=== PATIENT | female | born 1965 | race Caucasian/White ===

== ENCOUNTER 2024-10-26 09:58 | Outpatient (AMB) | payer OTHER, SELFPAY ==
--- OUTSIDE RECORDS SUMMARY | 2024-10-26 10:02 | XMS_ITS | Continuity of Care Document ---
Author Organization [facility] Address [address] [place] [address] [address] [place] [address]- Care Team Providers Care Information Systems Security Officer Name Role Phone Guille POWELL, Orly Gomez Primary Care Physician Encounter [facility] Date(s): 09/29/24 - 10/06/[address] [place], [place] [address] Attending Physician: Scott Payan MD Referring Physician: Not on Staff, Referring MD Encounter Type: Office Visit Allergies, Adverse Reactions, Alerts Substance Criticality Severity Reaction Reaction Severity Status ciprofloxacin emesis Active sulfa drugs nausea Active Bentyl SOB Active Immunizations Given and Recorded Vaccine Date Status Refusal Reason influenza virus vaccine, inactivated 09/09/24 Give n influenza virus vaccine, inactivated 09/05/22 Domenic rded influenza virus vaccine, inactivated 08/23/22 Domenic rded influenza virus vaccine, inactivated 08/22/21 Domenic rded influenza virus vaccine, inactivated 08/12/20 Domenic rded influenza virus vaccine, inactivated 10/07/18 Domenic rded influenza virus vaccine, inactivated 09/19/18 Give n influenza virus vaccine, inactivated 08/27/17 Domenic rded influenza virus vaccine, inactivated 10/14/16 Domenic rded [id number] 12y+ bivalent booster vax 09/05/22 Recorded SARS-CoV-2 mRNA (tbzzvvm-efon-nlpec) vax 03/28/22 Recorded zoster vaccine, inactivated 01/18/22 Recorded zoster vaccine, inactivated 09/04/21 Recorded SARS-CoV-2 (COVID-19) mRNA BNT-162b2 vac 10/10/21 Recorded SARS-CoV-2 (COVID-19) mRNA BNT-162b2 vac 02/08/21 Recorded SARS-CoV-2 (COVID-19) mRNA BNT-162b2 vac 01/18/21 Recorded Measles/Mumps/Rubella Virus Vaccine 04/01/19 Recor ded pneumococcal 23-valent vaccine 03/13/17 Given Afluria (oldterm) 10/16/16 Recorded pneumococcal 13-valent vaccine 08/09/15 Given Fluvirin Preservative-Free (oldterm) 08/09/15 Give n Adacel (Tdap) (oldterm) 07/14/15 Recorded Medications Acidophilus oral tablet TAKE 1 CAPSULE DAILY, 04/19/13 3:32:00 PM EDT Start Date: 04/19/13 Status: Ordered Repeat number: 1 Calcium and albumin blood draws Calcium and albumin blood draws, See Instructions, # 1 each, Refills 0, Tot. Refills 0, Maintenance, Calcium and albumin blood draws, 09/14/24 9:08:00 AM EST, Supply Start Date: 09/14/24 Status: Ordered Quantity: 1.0 Unit: each Repeat number: 1 calcium-vitamin D 600 mg-400 intl units oral tablet 1 tablet, By Mouth, 2 times a day, # 60 tablet, 0 Refills, Maintenance, 01/02/18 11:16:24 AM EST, Tablet Start Date: 01/02/18 Status: Ordered Quantity: 60.0 Unit: tablet Repeat number: 1 Colace sodium 100 mg oral capsule 100 mg, 1, capsule, By Mouth, 2 times a day, PRN, with plenty of water, # 20 capsule, Refills 1, Tot. Refills 1, Maintenance, for constipation, 09/07/24 9:26:00 AM EDT, Route to Pharmacy Electronically, [facility]/pharmacy #[id number], Partial fill upon patient request if the prescription is for a schedule II opioid drug., 163, cm, 09/07/24 7:10:00 EDT, Height, 65.7, kg, 09/07/24 7:10:00 EDT, Dry Weight Start Date: 09/07/24 Status: Ordered Quantity: 20.0 Unit: capsule Repeat number: 2 diclofenac 1% topical gel 1 application, Topically, 4 times a day, 1 gram per application, # 100 Gm, 1 Refills, Maintenance, 10/07/18 5:33:29 PM EST, Gel, [facility]/pharmacy #[id number], 1 application Topically 4 times a day,Instr:1 gramper application Start Date: 10/07/18 Status: Ordered Quantity: 100.0 Unit: g Repeat number: 2 Flax Seed Oil TAKE 2 CAPSULE DAILY, 04/19/13 12:00:00 AM EDT Start Date: 04/19/13 Status: Ordered Repeat number: 1 Fosamax 70 mg oral tablet 1 tablet = 70 mg, By Mouth, Every week, # 4 tablet, 0 Refills, Maintenance, 03/11/23 10:53:00 AM EDT,Tablet, Partial fill upon patient request if the prescription is for a schedule II opioid drug. Start Date: 03/11/23 Status: Ordered Quantity: 4.0 Unit: tablet Repeat number: 1 gabapentin 400 mg oral capsule 1 capsule = 400 mg, By Mouth, 2 times a day, TAKE 1 CAPSULE 3 TIMES DAILY., 04/19/13 3:32:00 PM EDT Start Date: 04/19/13 Status: Ordered Repeat number: 1 Ibuprofen 200 mg, By Mouth, Daily, Refills 0, Maintenance, 02/09/19 10:44:57 AM EDT Start Date: 02/09/19 Status: Ordered Repeat number: 1 lisinopril 5 mg oral tablet 1, tablet, By Mouth, Daily, # 90 tablet, Refills 0, Maintenance, 06/14/24 9:47:00 AM EDT, Route to Pharmacy Electronically, [id number], 162, cm, 03/19/24 10:26:00 EDT, Height Start Date: 06/14/24 Status: Ordered Quantity: 90.0 Unit: tablet Repeat number: 1 magnesium oxide 400 mg oral tablet TAKE 1 TABLET TWICE DAILY., 04/19/13 3:32:00 PM EDT Start Date: 04/19/13 Status: Ordered Repeat number: 1 Multi-Delyn with Iron 0 Refills, Maintenance, 03/19/24 10:26:00 AM EDT, Partial fill upon patient request if the prescription is for a schedule II opioid drug. Start Date: 03/19/24 Status: Ordered Repeat number: 1 nortriptyline 25 mg oral capsule TAKE 1 CAPSULE AT BEDTIME., 10/29/13 12:00:00 AM EDT Start Date: 09/07/13 Status: Ordered Repeat number: 1 pantoprazole 40 mg oral delayed release tablet 1 tablet = 40 mg, By Mouth, Daily, # 30 tablet, 0 Refills, Maintenance, 03/27/18 2:08:11 AM EDT, EC Tablet Start Date: 03/27/18 Status: Ordered Quantity: 30.0 Unit: tablet Repeat number: 1 Restasis 0.05% ophthalmic emulsion 1 drops, Eyes, Both, Every 12 hours, 0 Refills, Maintenance, 10/14/16 12:38:08 PM EST Start Date: 10/14/16 Status: Ordered Repeat number: 1 Tylenol Arthritis Caplet TAKE 2 TABLET 3 TIMES DAILY, 04/19/13 12:00:00 AM EDT Start Date: 04/19/13 Status: Ordered Repeat number: 1 Problem List Condition Confirmation Course Effective Dates Status Health St atus Informant Cervical spondylosis Confirmed Active Osteoarthritis, hand Confirmed Active GERD (gastroesophageal reflux disease) Confirmed Active Rectal/anal hemorrhage Confirmed Active Hypertension Confirmed Active Osteopenia Confirmed Active Osteoporosis Confirmed Active Overweight Confirmed Active Plantar fascial fibromatosis Confirmed Active Hyperparathyroidism , primary Confirmed Active Vital Signs Most recent to oldest [Reference Range]: 1 Height 163 cm (09/29/24 2:43 PM) Weight 65.4 kg (09/29/24 2:43 PM) Pulse Rate [55-90 bpm] 70 bpm (09/29/24 2:43 PM) Body Mass Index [18.5-24.99 kg/m2] 24.62 kg/m2 (09/29/24 2:43 PM) Blood Pressure [90-138/55-84 mm Hg] 118/ 71mm Hg (09/29/24 2:43 PM) Temperature [96.8-100.4 DegF] 98.9 DegF (09/29/24 2:43 PM) Blood pressure sites Arm, left (09/29/24 2:43 PM) Temperature Route Temporal (09/29/24 2:43 PM) Weight Obtained Via Standing scale (09/29/24 2:43 PM) Social History Social History Type Response Smoking Status Never smoker entered on: 04/16/18 Sex Sex Representation Female (finding) Patient Care team information Care Team Personnel Name: Andrea CHAHAL, Nimesh Bruno Position: S RN Member Role: Primary Care Nurse Name: Orly Han NP Position: [facility] PCO Associate Professional Member Role: PCP Address: [address] [place] [address] Telecom: Care Team Related Persons Name: PHILLIP PEDRO Insurance Providers Guarantor name: SELMA PEDRO Health Plan Information #: 1 [facility] Member Number: [id number] Policy Number: NA Group Number: [id number] Health Plan Information #: 2 Payer: [facility] Member Number: [id number] Policy Number: NA Group Number: NA
--- OUTSIDE RECORDS SUMMARY | 2024-10-26 10:02 | XMS_ITS | Continuity of Care Document ---
Author Organization [facility] Address [address] [place] [address] [address] [place] [address]- Care Team Providers Care Esthetician/Spa Coordinator Name Role Phone Orly Han NP Primary Care Physician Encounter [facility] Date(s): 09/14/24 - 10/14/[address] [place], [place] [address] Encounter Type: Triage Allergies, Adverse Reactions, Alerts Substance Criticality Severity [...] influenza virus vaccine, inactivated 10/14/16 Domenic rded [id number] 12y+ bivalent booster vax 09/05/22 Recorded SARS-CoV-2 mRNA (pukmjie-aitg-mbfsb) vax 03/28/22 Recorded zoster vaccine, inactivated 01/18/22 [...] 9:26:00 AM EDT, Route to Pharmacy Electronically, [facility]/pharmacy #[id number], Partial fill upon patient request if the [...] Refills, Maintenance, 10/07/18 5:33:29 PM EST, Gel, [facility]/pharmacy #[id number], 1 application Topically 4 times a day,Instr:1 [...] By Mouth, Daily, # 90 tablet, Refills 1, Tot. Refills 1, Maintenance, 10/08/24 1:18:00 PM EST, Route to Pharmacy Electronically, [facility]/pharmacy #[id number], 163, cm, 09/29/24 14:43:00 EST, Height,65.7, kg, 09/07/24 7:10:00 EDT, Dry Weight Start Date: 10/08/24 Status: Ordered Quantity: 90.0 Unit: tablet Repeat number: 2 magnesium oxide 400 mg oral tablet TAKE [...] oral capsule TAKE 1 CAPSULE AT BEDTIME., 09/07/13 12:00:00 AM EDT Start Date: 09/07/13 Status: [...] Confirmed Active Hyperparathyroidism , primary Confirmed Active Social History Social History Type Response Smoking Status Never smoker entered on: 04/16/18 Sex Sex Representation Female (finding) Patient Care team information Care Team Personnel Name: Andrea CHAHAL, Nimesh Bruno Position: [facility] RN Member Role: Primary Care Nurse Name: Orly Han NP Position: [facility] PCO Associate Professional Member Role: PCP Address: [address] [place] [address] Telecom: Care Team Related Persons Name: PHILLIP PEDRO Insurance Providers Guarantor name: SELMA PEDRO Health Plan Information #: 1 Payer: [facility] Member Number: NA Policy Number: NA Group Number: NA
--- OUTSIDE RECORDS SUMMARY | 2024-10-26 10:02 | XMS_ITS | Continuity of Care Document ---
Author Organization [facility] Primary [facility] [place] Address [address] [place] [address]- Care Team Providers Care Professor Of Communication And Writing Name Role Phone Orly Han NP Primary Care Physician Encounter [facility] Date(s): 09/02/24 - 10/02/24 [facility] [address] [place], [place] [address] Encounter Type: Triage Allergies, Adverse Reactions, Alerts [...] influenza virus vaccine, inactivated 10/14/16 Domenic rded [id number] 12y+ bivalent booster vax 09/05/22 Recorded SARS-CoV-2 mRNA (zlqplfx-kxmx-nitvv) vax 03/28/22 Recorded zoster vaccine, inactivated 01/18/22 Recorded zoster vaccine, inactivated 09/04/21 Recorded SARS-CoV-2 (COVID-19) mRNA BNT-162b2 vac 10/10/21 Recorded SARS-CoV-2 (COVID-19) mRNA BNT-162b2 vac 4/1/21 Recorded SARS-CoV-2 (COVID-19) mRNA BNT-162b2 vac 01/18/21 [...] 9:26:00 AM EDT, Route to Pharmacy Electronically, [facility]/pharmacy #[id number], Partial fill upon patient request if the [...] Refills, Maintenance, 10/07/18 5:33:29 PM EST, Gel, [facility]/pharmacy #[id number], 1 application Topically 4 times a day,Instr:1 [...] 9:47:00 AM EDT, Route to Pharmacy Electronically, [facility] STORE [id number], 162, cm, 03/19/24 10:26:00 EDT, Height Start [...] Personnel Name: Andrea CHAHAL, Nimesh Bruno Position: [facility] RN Member Role: Primary Care Nurse Name: Orly Han NP Position: [facility] PCO Associate Professional Member Role: PCP Address: [address] [place] [address] Telecom: Care Team Related Persons Name: PHILLIP PEDRO Insurance Providers Guarantor name: [facility] Plan Information #: 1 Payer: [facility] Member Number: NA Policy Number: NA Group Number: NA
--- OUTSIDE RECORDS SUMMARY | 2024-10-26 10:02 | XMS_ITS | Continuity of Care Document ---
Author Organization [facility] [place] [facility] Address [address] [place] [address] [address], [address] [place] [address]- Care Team Providers Care Chair Car Driver Name Role Phone Orly Han NP Primary Care Physician Encounter [facility] Date(s): 09/15/24 - 10/15/24 [facility] [address] [place] [address] Drive [address] [place], [place] [address] Encounter Type: Triage Allergies, Adverse Reactions, [...] influenza virus vaccine, inactivated 10/14/16 Domenic rded [id number] 12y+ bivalent booster vax 09/05/22 Recorded SARS-CoV-2 mRNA (qkvmvdy-ndep-xychn) vax 03/28/22 Recorded zoster vaccine, inactivated 01/18/22 [...] 9:26:00 AM EDT, Route to Pharmacy Electronically, [facility]/pharmacy #[id number], Partial fill upon patient request if the [...] Refills, Maintenance, 10/07/18 5:33:29 PM EST, Gel, [facility]/pharmacy #[id number], 1 application Topically 4 times a [...] 1:18:00 PM EST, Route to Pharmacy Electronically, [facility]/pharmacy #[id number], 163, cm, 09/29/24 14:43:00 EST, Height,65.7, [...] Personnel Name: Andrea CHAHAL, Nimesh Bruno Position: [facility] RN Member Role: Primary Care Nurse Name: Orly Han NP Position: [facility] PCO Associate Professional Member Role: PCP Address: [address] [place] [address] Telecom: Care Team Related Persons Name: PHILLIP PEDRO Insurance Providers Guarantor name: SELMA MENDOZAELINSKI Health Plan Information #: 1 Payer: [facility] Member Number: NA Policy Number: NA Group Number: NA
[2024-10-26 10:18] VITALS: BP 120/70; PULSE 82; O2SAT 95; BMI 24.2
--- NOTE | 2024-10-26 10:18 | A.OFFVIS_ITS ---
Vital Signs 10/26/24 10:18 Height 5 ft 4 in Weight 140 lb 14.006 oz BMI 24.2 BP 120/70 Blood Pressure Location Lt brachial Position Sitting Pulse 82 Pulse Source Pulse Oximeter Pulse Oximetry (%) 95 Oxygen Delivery Method Room Air Intake Visit Reasons: RA Intake Note: Patient presents for follow up on RA. Patient needs refill of Fosamx today. Allergies amoxicillin [From Augmentin] Allergy (Mild, Verified 10/26/24 10:26) Nausea clavulanic acid [From Augmentin] Allergy (Mild, Verified 10/26/24 10:26) Nausea dicyclomine [From Bentyl] Allergy (Mild, Verified 10/26/24 10:26) Anaphylaxis Sulfa (Sulfonamide Antibiotics) Allergy (Mild, Verified 10/26/24 10:26) Nausea HPI HPI RA: Details: Parathryoid removed 2 months ago. Healing well. She has a 4 month follow-up scheduled with surgeon. She continues to take calcium supplement. She reports that last calcium level was normal on supplementation. She also is on a multivitamin. Alendronate rx sent to pharmacy. Review of Systems Const All systems reviewed & are unremarkable except as noted in HPI and below Physical Exam Vital Signs: Last Vital Signs Pulse 82 10/26/24 10:18 BP 120/70 10/26/24 10:18 Pulse Ox 95 10/26/24 10:18 Oxygen Delivery Method Room Air 10/26/24 10:18 BMI result Body Mass Index 24.2 Const Other: General: Comfortable Skin: No lesions seen MSK: Good cervical range of motion. Good lumbar flexion. Skin: Scar anterior neck is healing well without any sign of infection Assessment & Plan Assessment & Plan (1) Osteoporosis: Comment: On alendronate. She recently had parathyroidectomy for treatment of hyperparathyroidism without any complications. We reviewed recent labs 10/18/2024, which reveal normal calcium, creatinine, vitamin-D level with bone turnover markers at in a good range while patient is on treatment. Answered patient's questions to her satisfaction. Code(s): M81.0 - Age-related osteoporosis without current pathological fracture Category: Medical Qualifiers: Osteoporosis type: age-related Presence of current pathological fracture: without current pathological fracture Qualified Code(s): M81.0 - Age- related osteoporosis without current pathological fracture Plan: Bone density is due after 11/12/2024. Continue calcium carbonate 500 mg daily Continue multivitamin daily Continue alendronate 70 mg once weekly She will continue to follow-up with endocrinology for hyperparathyroidism management status post parathyroidectomy Return to clinic in 2 months to review bone density Orders: Orders XR DEXA axial skeleton 1 Month M81.0 - Age-related osteoporosis without current pathological fracture Coding Level of Care Code Est Pt Level 4 (54479) Complex EM visit Add On G2211 Diagnoses Age-related osteoporosis without current pathological fracture M81.0 Osteoporosis type: age-related Presence of current pathological fracture: without current pathological fracture
== END 2024-10-26 11:44 | disposition home or self-care (01) ==
PROVIDERS: PCP Internal Medicine; Visit Provider Internal Medicine Rheumatology
DX: M81.0 Age-related osteoporosis without current pathological fracture (principal)
CPT/HCPCS: 99214

== ENCOUNTER 2024-12-09 09:58 | Outpatient (REF) | payer OTHER, SELFPAY ==
--- NOTE | ~2024-12-09 | MM_ITS ---
EXAMINATION: DXA BONE DENSITY EXTREMITY HISTORY: Estrogen deficiency TECHNIQUE: Resale Therapy Dual energy absorptiometry (DEXA) of the lumbar spine, total left hip, and femoral neck was performed. COMPARISON: There are no prior studies for comparison. FINDINGS: The bone mineral density of the lumbar spine is 0.851 with a T-score of -2.7, and a Z-score of -1.3. The bone mineral density of the left total hip is 0.751 with a T-score of -2.0, and a Z-score of -0.9. The bone mineral density of the left femoral neck is 0.669 with a T-score of -2.7, and a Z-score of -1.3. The bone mineral density of the distal radius is 0.622 with a T-score of -2.9, and a Z-score of -1.8. MM/XR DEXA appendicular skeleton IMPRESSION: Based on bone mineral density, and according to World Health Organization (WHO) criteria, the diagnosis is consistent with osteoporosis. All bone density values are in grams per centimeter squared (g/cm2). Statistically, 68% of repeat scans fall within 1 SD (+/- 0.010 g/cm2 for AP spine L1-L4) and 1 SD (+/- 0.012 g/cm2 for femur total) FRAX is a trademark of the [employer]'s [employer] Disease, a World Health Organization (WHO) Collaborating Center. Electronically signed by: Alberto Soni MD 12/13/2024 12:38 PM [facility]
--- OUTSIDE RECORDS SUMMARY | 2024-12-09 13:06 | XMS_ITS | Encounter Summary ---
Author Organization [facility] Address [address] [place] [address] Care Team Providers Care Comptometrist Name Role Phone Orly Han NP Primary Care Provider [phone] Encounter Details Date Type Department Care Team (Latest Contact Info) Description 12/06/[address] [facility] [address] [facility] [place] [phone] Trent Restrepo MD [address] [facility] [address] [place] [phone] Encounter for screening for infections with a predominantly sexual mode of transmission Social History Tobacco Use Types Packs/Day Years Used Date Smoking Tobacco: Never Smokeless Tobacco: Never Alcohol Use Standard Drinks/Week Comments Yes 0 (1 standard drink = 0.6 oz pur e alcohol) Housing Instability Answer Date Recorde d Are you worried that in the next 2 months you may not have stable housing? No 11/04/2024 Food Access & Nutrition Answer Date Rec orded Do you have access to a vari ety of food including fruits and vegetables? Yes 11/04/2024 Health Literacy Answer Date Recorded How often do you need to hav e someone help you when you read instructions, pamphlets, or other written material from your doctor or pharmacy? Never 11/04/2024 Caregiver: How often do you need to have someone help you when you read instructions, pamphlets, or other written material from your doctor or pharmacy? Not on file 11/04/2024 Financial Risk Answer Date Recorded How hard is it for you to pa y for the very basics like food, housing, medical care, and air conditioning / heating? Not very hard 11/04/2024 Transportation Answer Date Recorded Has the lack of transportati on kept you from meetings, work, or from getting things needed for daily living? No Has the lack of transportati on kept you from medical appointments or from getting medications? No 11/04/2024 Social Isolation Answer Date Recorded How often do you feel lonely or isolated from th ose around you? Never 11/04/2024 Food Risk Answer Date Recorded Within the past 12 months we worried whether our food would run out before we got money to buy more. Never true 11/04/2024 Within the past 12 months th e food we bought just didn't last and we didn't have money to get more. Never true 11/04/2024 Dependent Care Answer Date Recorded Do you need help finding or paying for care for your loved ones. For example, early childhood director or elderly care for an older adult? No 11/04/2024 Education Answer Date Recorded Do you think completing more education or training, like finishing a GED, going to college, or learning a trade, would be helpful for you? No 11/04/2024 Employment and Income Answer Date Recor ded During the last four weeks, have you been actively looking for work? No 11/04/2024 Living Situation Answer Date Recorded What is your living situation? 1 01/05/2024 Sex and Gender Information Value Date Recorded Sex Assigned at Not on file Gender Identity Not on file Sexual Orientation Not on file Job Start Date Occupation Industry Not on file Not on file Not on file documented as of this encounter Plan of Treatment Upcoming Encounters Date Type Department Care Team (Late st Contact Info) Description 04/14/2025 11:00 AM EDT Office Visit [facility] [address] [facility] [address] [place] [phone] Dariusz Mike MD [address] [facility] [address] [place] [address] documented as of this encounter Procedures Procedure Name Priority Date/Time Associated Diagnosis Comments CHLAMYDIA TRACHOMATIS AND NEISSERIA GONORRHOEAE PCR Routine 12/06/2024 12:00 AM EST Encounter for screening for infections with a predominantly sexual mode of transmission documented in this encounter Results * Chlamydia trachomatis and Neisseria gonorrhoeae molecular study (12/06/2024 12:00 AM EST) Neisseria gonorrhoeae PCR Negative Negative LAB MOLECULAR DIAGNOSTICS METHOD 12/07/2024 8:50 AM EST [facility] Chlamydia trachomatis PCR Negative Negative LAB MOLECULAR DIAGNOSTICS METHOD 12/07/2024 8:50 AM EST [facility] Swab Cervix uteri structure / Unknown 12/06/2024 12/06/2024 6:24 PM EST Trent Restrepo MD LAB MICROBIOLOGY - G ENERAL ORDERABLES [facility] [address] [place] [address], documented in this encounter Visit Diagnoses Diagnosis Encounter for screening for infections with a predominantly sexual mode of transmission documented in this encounter Care Teams Comptometrist Relationship Specialty Start Date End Date Orly Han NP [address] [place] [address] PCP - General 02/26/22 documented as of this encounter
--- OUTSIDE RECORDS SUMMARY | 2024-12-09 13:06 | XMS_ITS | Continuity of Care Document ---
Author Organization [facility] Address [address] [place] [id number] Care Team Providers Care Event Marketing Manager Name Role Phone Orly Han NP [phone] Date[facility]s): 11/11/24 - 11/18/24 [facility] [address] [place] [id number] Encounter Diagnosis Osteoporosis(Discharge Diagnosis) - 11/11/24 GERD (gastroesophageal reflux disease)(Discharge Diagnosis) - 11/11/24 Attending Physician: Gina Coburn MD Referring Physician: Orly Hna NP Encounter Type: Office Visit Allergies, Adverse Reactions, Alerts Substance Criticality Severity Reaction Reaction Severity Status ciprofloxacin emesis Active Bentyl SOB Active sulfa drugs nausea Active Immunizations Given and Recorded Vaccine Date [...] influenza virus vaccine, inactivated 10/14/16 Domenic rded [id number] 12y+ bivalent booster vax 09/05/22 Recorded SARS-CoV-2 mRNA ([id number]) vax 03/28/22 Recorded zoster vaccine, inactivated 01/18/22 [...] 9:26:00 AM EDT, Route to Pharmacy Electronically, [facility]/pharmacy #[id number], Partial fill upon patient request if the [...] Refills, Maintenance, 10/07/18 5:33:29 PM EST, Gel, [facility]/pharmacy #[id number], 1 application Topically 4 times a [...] 1:18:00 PM EST, Route to Pharmacy Electronically, [facility]/pharmacy #[id number], 163, cm, 09/29/24 14:43:00 EST, Height,65.7, [...] 10/14/16 Status: Ordered Repeat number: 1 Tylenol 8 HR Arthritis Pain 650 mg oral tablet, extended release By Mouth, 2 tablets twice a day, 0 Refills, Maintenance, 11/11/24 10:31:00 AM EST, Partial fill upon patient request if the prescription is for a schedule II opioid drug. Start Date: 11/11/24 Status: Ordered Repeat number: 1 Tylenol Arthritis [...] Confirmed Active Hyperparathyroidism , primary Confirmed Active Diagnosis Diagnosis Type Effective Dates Health Status Clinical Service Informant Osteoporosis Discharge Diagnosis 11/11/24 GERD (gastroesophageal reflux disease) Discharge Diagnosis 11/11/24 Vital Signs Most recent to oldest [Reference Range]: 1 Height 163 cm (11/11/24 10:33 AM) Weight 62.9 kg (11/11/24 10:33 AM) Pulse Rate [55-90 bpm] 87 bpm (11/11/24 10:33 AM) Body Mass Index [18.5-24.99 kg/m2] 23.67 kg/m2 (11/11/24 10:33 AM) Blood Pressure [90-138/55-84 mm Hg] 106/ 66mm Hg (11/11/24 10:33 AM) Blood pressure sites Arm, left (11/11/24 10:33 AM) Weight Obtained Via Bed scale (11/11/24 10:33 AM) Social History Social History Type Response Smoking Status Never smoker entered on: 04/16/18 Sex Sex Representation Female (finding) Note * Maya Ortega: PERFORM Event Display: Patient Education/Instruction Authored Date: Ambulatory Adult Visit Summary [facility] [address] [place] [address] Name: SELMA PEDRO : 1965?? Visit: 11/11/2024 10:23?? Ambulatory Visit Instructions ?? Your Care Team Primary Care Provider Guille POWELL, Orly Gomez? This Visit Provider Almas CAMPUZANO, Gina Vitals Signs Pulse Rate: 87 bpm Height: 163 cm Systolic Blood Pressure: 106 mm Hg Weight: 62.9 kg Diastolic Blood Pressure: 66 mm Hg Body Mass Index: 23.67 kg/m2 ?? Body surface area: 1.69 What to do next Future Orders Phosphorus Level - Routine, Once, 02/10/24 8:48:00 EDT, Single or Recurring Future Order, [facility], Blood?? Calcium Level - Routine, Once, 02/10/24 8:48:00 EDT, Single or Recurring Future Order, [facility], Blood?? Albumin Level - Routine, Once, 02/10/24 8:48:00 EDT, Single or Recurring Future Order, [facility], Blood?? CBC w/ Differential - Routine, Once, 09/09/24 11:26:00 EDT, Future Order, [facility], Blood?? Comprehensive Metabolic Panel - Routine, Once, 09/09/24 11:26:00 EDT, Future Order, [facility], Blood?? TSH - Routine, Once, 09/09/24 11:26:00 EDT, Future Order, [facility], Blood?? Lipid Panel - Routine, Once, 09/09/24 11:26:00 EDT, Future Order, [facility], Blood?? Vitamin D 25 Hydroxy Level - Routine, Once, 09/09/24 11:26:00 EDT, Future Order, [facility], Blood?? Medications The list below reflects the information in our records and provided by you today along with any changes made during this visit. Please continue your medications until treatment is completed or stopped by your provider. If this is different from the information you have or there are other questions,please contact the prescribing provider. What How Much When Instructions Unchanged Acetaminophen (Tylenol 8 HR Arthritis Pain 650 mg oral tablet, extended release) Oral 2 tablets twice a day ?? Unchanged Acetaminophen (Tylenol Arthritis Caplet) TAKE 2 TABLET 3 TIMES DAILY ?? Unchanged Alendronate (Fosamax 70 mg oral tablet) 1 tab(s) Oral Every week Unchanged Calcium And Vitamin D Combination (calcium-vitamin D 600 mg-400 intl units oral tablet) 1 tab(s) Oral Twice a day Unchanged Cyclosporine Ophthalmic (Restasis 0.05% ophthalmic emulsion) 1 Drops Both eyes Every 12 hours Unchanged Diclofenac Topical (diclofenac 1% topical gel) 1 jenise Topically 4 times a day 1 gram per application ?? Unchanged Docusate (Colace sodium 100 mg oral capsule) 1 capsule Oral Twice a day as needed for for constipation with plenty of water ?? Unchanged Flax (Flax Seed Oil) TAKE 2 CAPSULE DAILY ?? Unchanged Gabapentin (gabapentin 400 mg oral capsule) 1 capsule Oral Twice a day TAKE 1 CAPSULE 3 TIMES DAILY. ?? Unchanged Ibuprofen 200 Milligram Oral Daily Unchanged Lactobacillus Acidophilus (Acidophilus oral tablet) TAKE 1 CAPSULE DAILY ?? Unchanged Lisinopril (lisinopril 5 mg oral tablet) 1 tab(s) Oral Daily Unchanged Magnesium Oxide (magnesium oxide 400 mg oral tablet) TAKE 1 TABLET TWICE DAILY. ?? Unchanged Miscellaneous Rx (Calcium and albumin blood draws) See instructions Calcium and albumin blood draws ?? Unchanged Multivitamin With Iron (Multi-Delyn with Iron) Unchanged Nortriptyline (nortriptyline 25 mg oral capsule) TAKE 1 CAPSULE AT BEDTIME. ?? Unchanged Pantoprazole (pantoprazole 40 mg oral delayed release tablet) 1 tab(s) Oral Daily Medications and Immunizations Administered Medications Given During Visit No medications given during this visit.?? Allergies (NKA means No Known Allergies) Bentyl??(SOB) ciprofloxacin??(emesis) sulfa drugs??(nausea) Common Emergency Awareness Tips IS IT A STROKE? Act FAST and Check for these signs: FACE Does the face look uneven? ARM Does one arm drift down? SPEECH Does their speech sound strange? TIME Call at any sign of stroke ?? Heart Attack Signs Chest discomfort: Most heart attacks involve discomfort in the center of the chest and lasts more than a few minutes, or goes away and comes back. It can feel like uncomfortable pressure, squeezing, fullness or pain. Discomfort in upper body: Symptoms can include pain or discomfort in one or both arms, back, neck, jaw or stomach. Shortness of breath: With or without discomfort. Other signs: Breaking out in a cold sweat, nausea, or lightheaded. Remember, MINUTES DO MATTER. If you experience any of these heart attack warning signs, call to get immediate medical attention! ?? Smoking can increase your chances of developing chronic health problems and can cause harmful effects to other family members in your house. If you smoke, you are strongly encouraged to quit. Please call [facility] at [phone] or [phone] ([phone]) or log in to [email or web address] for referrals to smoking cessation programs. ?? The National Suicide Prevention Hotline is available 02/06 if you or someone you know needs to find a reason to keep living. By calling 5-400-100-[employer] (1063) you'll be connected to a skilled, trained counselor at a crisis center in your area. [facility] You can view and manage your care through the patient portal or by using a health care jenise of your choosing. [employer] is a website that allows you to securely view your medical information including your hospital discharge summary, office visit summaries, medications and follow-up visits. You can also request appointments, renew medications, and request access to your medical information using a health care jenise of your choosing, or just ask a question. You can enroll at [email or web address] or register during your next office visit. [facility], in keeping with [facility] guidance, no longer requires face masks for staff, patientsor visitors in most situations. Similiar to time spent indoors at other locations, there is the chance that you were exposed to repiratory viruses during your time with us (such as flu or COVID-19). If you develop symptoms concerning for a viral respiratory infection, please seek testing (and treatment if indicated) from your medical provider or home test kit. ?? Disclaimer: The information provided is of a general nature and is intended to be used in conjunction with the recommendations and advice of your health care practitioner. Every effort has been made to ensure that the information provided is accurate and complete at the time it is provided to you however, as your needs change, or, as new information becomes available, different or additional instructions may be required. ?? If you have questions, please consult with your primary care provider or pharmacist, as appropriate. This information is not intended to serve as substitution for assessment and evaluation by a qualified health care provider. If you do not have a primary care provider, you may find a [facility] provider by calling [facility] at [phone]. Patient Care team information Care Team Personnel Name: Andrea CHAHAL, Nimesh Bruno Position: [facility] RN Member Role: Primary Care Nurse Name: Orly Han NP Position: [facility] PCO Associate Professional Member Role: PCP Address: [address] [place] [address] Telecom: Care Team Related Persons Name: PHILLIP PEDRO Insurance Providers Guarantor name: SELMA PEDRO [facility] Information #: 1 Payer: [facility] Member Number: [id number] Policy Number: NA Group Number: [id number] Health Plan Information #: 2 Payer: [facility] Member Number: [id number] Policy Number: NA Group Number: NA
--- OUTSIDE RECORDS SUMMARY | 2024-12-09 13:07 | XMS_ITS | Clinical Summary ---
Author Organization [facility] Address [address] [place] [address] Phone Care Team Providers Care Research Biologist Name Role Phone Orly Han NP Primary Care Provider [phone] Allergies Active Allergy Reactions Criticality Noted Date Comments Amoxicillin-Pot Clavulanate 11/28/2020 Nauseas and headaches Dicyclomine 02/26/2022 Sulfa (Sulfonamide Antibiotics) Nausea And Vomiting 12/30/2018 Medications Medication Sig Dispensed Refills Start Date End Date Status ACETAMINOPHEN ORAL Take by mouth. Ac tive alendronate (FOSAMAX) 70 mg tablet PLEASE SEE ATTACHED FOR DETAILED DIRECTIONS 11/19/2023 Active calcium carbonate (CALCIUM ORAL) Take by mouth. Active CRANBERRY ORAL Take by mouth. Active cholecalciferol (VITAMIN D-3) 25 mcg (1,000 unit) tablet Take by mouth. Active diclofenac (Voltaren Arthritis Pain) 1 % topical gel APPLY TO AFFECTED AREA EVERY 6 HOURS 06/21/2020 Active gabapentin (NEURONTIN) 400 mg capsule Take 1 capsule (400 mg total) by mouth 3 (three) times a day with meals. 09/04/2020 Active IBUPROFEN ORAL Take by mouth. Active lisinopriL (PRINIVIL,ZESTRIL) 5 mg tablet Take 1 tablet (5 mg total) by mouth 1 (one) time each day. 07/31/2020 Active nortriptyline (PAMELOR) 25 mg capsule 09/16/2020 Active pantoprazole (PROTONIX) 40 mg EC tablet Take 40 mg by mouth daily. 08/29/2020 Active cycloSPORINE (Restasis MultiDose) 0.05 % drops INSTILL 1 DROP INTO AFFECTED EYE EVERY 12 HOURS 01/11/2022 Active MAGNESIUM ORAL Take by mouth. Active Lactobacillus acidophilus (PROBIOTIC ORAL) Take by mouth. Acti ve clotrimazole-betam ethasone (LOTRISONE) 1-0.05 % cream 1 GRAM TWICE A DAY TO AFFECTED AREA 12/22/2023 Active cyclobenzaprine (FLEXERIL) 5 mg tablet Take 1 tablet (5 mg total) by mouth. 10/24/2023 Active nitrofurantoin, macrocrystal-monoh ydrate, (MACROBID) 100 mg capsule Take 1 capsule (100 mg total) by mouth 2 (two) times a day. for 10 days 01/06/2024 Active oxyCODONE (ROXICODONE) 5 mg immediate release tablet Take 1 tablet (5 mg total) by mouth every 6 (six) hours if needed. for pain Max Daily Amount: 20 mg 09/07/2024 Active nitrofurantoin, macrocrystal-monoh ydrate, (MACROBID) 100 mg capsule Take 1 capsule (100 mg total) by mouth 2 (two) times a day for 5 days. 10 capsule 11/04/2024 11/09/2024 Active Problems Problem Noted Date Diagnosed Date At high risk for breast cancer 09/28/2024 BRCA2 gene mutation positive in female 4 Paroxysmal tachycardia 08/18/2024 GERD (gastroesophageal reflux disease) 9 Migraines 04/19/2019 Encounters Date Type Department Care Team Description 12/06/2024 Lab Requisition [facility] - Main Lab [address] [facility] [facility] [place] [address] Trent Restrepo MD Encounter for screening for infections with a predominantly sexual mode of transmission 11/04/2024 2:30 PM EST Office Visit Walk-In Clinic - [address] [address] Haja Chance PA Acute cystitis with hematuria (Primary Dx) 09/28/2024 11:00 AM EST Office Visit [facility] [place] [address] [facility] [address] [place] [address] Ronnie Mike MD BRCA2 gene mutation positive in female (Primary Dx); At high risk for breast cancer 09/10/2024 11:24 AM EDT - 09/10/2024 11:59 PM EDT Hospital Encounter [facility] [address] [place] [address] Ronnie Mike MD Discharge Disposition: Home or Self Care from Last 3 Months Immunizations Name Administration Dates Next Due Moderna SARS-CoV-2 COVID-19, mRNA, LNP-S, preservative free 09/05/2022 Surgical History Surgery Date Site/Laterality Comments SALPINGOOPHORECTOMY 11/2011 PROCEDURE: [place] LAPAROSCOPY W/RMVL ADNEXAL STRUCTURES Medical History Medical History Date Comments BRCA2 gene mutation positive in female 01/10/2009 DX:BRCA2 gene mutation posit raven in female Migraines 04/19/2019 DX:Migraines GERD (gastroesophageal reflu x disease) 04/19/2019 DX:GERD (gastroesophageal re flux disease) Paroxysmal tachycardia (CMS/HCC) DX:Paroxysmal tachycardia (HCC) Family History Medical History Relation Name Comments Prostate cancer Father age 53 Breast cancer Father's side 1 Aunt BRCA + , metastatic ovarian cancer Prostate cancer Father's side 2 Uncle Other: BRCA + Father's side 3 1st Cousin Other: Ovarian Cancer Maternal Grandmother Breast cancer Paternal Grandmother Relation Name Status Comments Father Father's side 1 Alive 60's Father's side 2 Father's side 3 Maternal Grandmother Paternal Grandmother 60's Social History Tobacco Use Types Packs/Day Years [...] care for your loved ones. For example, child day care teacher or elderly care for an older adult? [...] file Not on file Not on file Obstetrics History Last Filed Vital Signs Vital Sign Reading Time Taken Comments Blood Pressure 100/52 11/04/2024 2:42 PM EST Pulse 82 11/04/2024 2:42 PM EST Temperature 36.3 ??C (97.3 ??F) 11/04/2024 2:42 PM ES T Respiratory Rate - - Oxygen Saturation 98% 11/04/2024 2:42 PM EST Inhaled Oxygen Concentration - - Weight 65.1 kg (143 lb 9.6 oz) 09/28/2024 11:21 AM EST Height 162.6 cm (5' 4 ) 02/26/2022 11:16 AM EDT Body Mass Index 24.65 02/26/2022 11:16 AM EDT Plan of Treatment Upcoming Encounters Date Type Department Care Team (Late st Contact Info) Description 04/14/2025 11:00 AM EDT Office Visit [facility] [place] [facility] [address] [place] [phone] Ronnie Mike MD [address] [place] [address] Health Maintenance Due Date Last Done Comments Cervical Cancer Screening: Pap Smear 02/12/1984 Cholesterol Screening (Lipid Panel) 10/14/2022 Colorectal Cancer Screening: Colonoscopy 10/14/2022 Depression Screening 10/14/2022 HIV Screening 10/14/2022 Hepatitis C Screening 10/14/2022 Osteoporosis Screening (Bone Density Screening) 10/14/2022 Hypertension/CHF/CAD Annual BMP Blood Test 09/28/2024 DTaP,Tdap,and Td Vaccines (2 - Td or Tdap) 07/14/2025 07/14/2015 Social Influencers of Health Screening 11/04/2025 11/04/2024 Breast Cancer Screening 09/10/2026 09/10/20, 09/02/2023, 08/15/2022, Additional history exists Pneumococcal Vaccine: Pediatrics (0 to 5 Years) and At-Risk Patients (6 to 64 Years) Aged Out 03/13/2017, 08/09/2015 No longer eligibl e based on patient's age to complete this topic MMR Vaccines Aged Out 04/01/2019 No longer eligi ble based on patient's age to complete this topic Zoster Vaccines Completed 01/18/2022, 09/04/2021 RSV Immunization Patients 60+ Years Old Completed 09/25/2023 Influenza Vaccine Completed 09/09/2024, , 09/05/2022, Additional history exists COVID-19 Vaccine Completed 09/24/2024, , 09/05/2022, Additional history exists HIB Vaccines Aged Out No longer eligi ble based on patient's age to complete this topic HPV Vaccines Aged Out No longer eligi ble based on patient's age to complete this topic Hepatitis A Vaccines Aged Out No long er eligible based on patient's age to complete this topic Hepatitis B Vaccines Aged Out No long er eligible based on patient's age to complete this topic IPV Vaccines Aged Out No longer eligi ble based on patient's age to complete this topic Meningococcal ACWY Vaccine Aged Out N o longer eligible based on patient's age to complete this topic RSV Immunization Patients Under 20 months Aged Out No longer eligible based on patient's age to complete this topic Varicella Vaccines Aged Out No longer eligible based on patient's age to complete this topic Procedures Procedure Name Priority Date/Time Associated Diagnosis Comments CHLAMYDIA TRACHOMATIS AND NEISSERIA GONORRHOEAE PCR Routine 12/06/2024 12:00 AM EST Encounter for screening for infections with a predominantly sexual mode of transmission POC URINE NON-AUTO W/O MICRO Routine 11/04/2024 6:19 PM EST Acute cystitis with hematuria URINALYSIS MICROSCOPIC ONLY Routine 11/04/2024 3:25 PM EST Acute cystitis with hematuria URINALYSIS MICROSCOPIC ONLY Routine 11/04/2024 3:25 PM EST Acute cystitis with hematuria CULTURE URINE Routine 11/04/2024 3:25 PM EST Acute cystitis with hematuria MICHAELLE SCREENING DIGITAL Routine 09/10/2024 12:12 PM EDT from Last 3 Months Results * Chlamydia trachomatis and Neisseria gonorrhoeae molecular study (12/06/2024 12:00 AM EST) Neisseria gonorrhoeae PCR Negative Negative LAB MOLECULAR DIAGNOSTICS METHOD 12/07/2024 8:50 AM EST [facility] Chlamydia trachomatis PCR Negative Negative LAB MOLECULAR DIAGNOSTICS METHOD 12/07/2024 8:50 AM EST [facility] Swab Cervix uteri structure / Unknown 12/06/2024 12/06/2024 6:24 PM EST Trent Restrepo MD LAB MICROBIOLOGY - G ENERAL ORDERABLES [facility] [address] [place] [address], [place] [phone] * (ABNORMAL) POC Urine Non-Auto W/O Micro (11/04/2024 6:19 PM EST) GLUCOSE POC Negative Negative, Trace mg/dL Leukocytes UA POC 2+(A) Negative mg/dL Nitrite UA POC Positive Urobilinogen UA POC 0.2 E.U./dL mg/dL Protein UA POC Positive Positive, Negative PH UA POC 7.0 ALINA/HM UA POC 50(A) Negative Specific [place] UA POC 1.010 Ketones UA POC Negative Negative Bilirubin UA POC Negative Negative Urine Urine specimen obtained by clean catch procedure / Unknown 11/04/2024 6:19 PM EST Haja MAGAÑA POINT OF CARE TEST ENTER/EDIT ORDERABLES * (ABNORMAL) Urinalysis microscopic only (11/04/2024 3:25 PM EST) Pathologist [facility] RBC, Urine 28.8(H) 0 - 4 /HPF LAB URINALYSIS - AUTOMATED METHOD 11/04/2024 7:36 PM [facility] WBC, Urine 64.7(H) 0 - 4 /HPF LAB URINALYSIS - AUTOMATED METHOD 11/04/2024 7:36 PM [facility] Squamous Epithelial, Urine 7 0 - 60 /LPF LAB URINALYSIS - AUTOMATED METHOD 11/04/2024 7:36 PM [facility] Bacteria, Urine Few(A) Negative /HPF LAB URINALYSIS - AUTOMATED METHOD 11/04/2024 7:36 PM [facility] Hyaline Casts, Urine 1.7 0 - 3 /LPF LAB URINALYSIS - AUTOMATED METHOD 11/04/2024 7:36 PM EST [facility] Urine Urine specimen obtained by clean catch procedure / Unknown Non-blood Collection / Unknown 11/04/2024 3:25 PM EST 11/04/2024 3:25 PM EST Haja MAGAÑA LAB URINE ORDERABL ES [facility] [address] [place] [address], * (ABNORMAL) Culture urine (11/04/2024 3:25 PM EST) Culture, Urine 50,000-100,000 CFU/mL Escherichia coli(A) ARELIS 11/06/2024 9:57 AM EST [facility] Urine Urine specimen obtained by clean catch procedure / Unknown Non-blood Collection / Unknown 11/04/2024 3:25 PM EST 11/04/2024 3:25 PM EST Narrative Organism Antibiotic Method Susceptibility Escherichia coli Amoxicillin/Clavulanate ARELIS 8 ug/ml: Susceptible Escherichia coli Ampicillin/Sulbactam ARELIS 16 ug/ml: Intermediate Escherichia coli Piperacillin/Tazobactam ARELIS <=4 ug/ml: Susceptible Escherichia coli Cefazolin (Urine) ARELIS <=1 ug/ml: Susceptible Escherichia coli Cefoxitin ARELIS <=4 ug/ml: Susceptible Escherichia coli Ceftazidime ARELIS <=0.5 ug/ml: Susceptible Escherichia coli Ceftriaxone ARELIS <=0.25 ug/ml: Susceptible Escherichia coli Cefepime ARELIS <=0.12 ug/ml: Susceptible Escherichia coli Meropenem ARELIS <=0.25 ug/ml: Susceptible Escherichia coli Amikacin ARELIS 2 ug/ml: Susceptible Escherichia coli Gentamicin ARELIS <=1 ug/ml: Susceptible Escherichia coli Ciprofloxacin ARELIS <=0.06 ug/ml: Susceptible Escherichia coli Levofloxacin ARELIS <=0.12 ug/ml: Susceptible Escherichia coli Nitrofurantoin ARELIS <=16 ug/ml: Susceptible Escherichia coli Trimethoprim/Sulfamethoxazole ARELIS <=20 ug/ml: Susceptible Haja MAGAÑA LAB MICROBIOLOGY - GENERAL ORDERABLES [facility] HOSPITAL LAB [address] [place] [address], * MICHAELLE SCREENING DIGITAL (09/10/2024 12:12 PM EDT) Anatomical Region Laterality Modality Mammography 09/10/2024 11:2 3 AM EDT Narrative 09/10/2024 12:12 PM EDT [facility] Diagnostic Imaging Department [address] [place] [address] Patient: ??TASHA LE ?/Age/Sex: 1965 - 59 - F Unit#: ??[id number] ? Location/Status: ??SPDIMAM/REG CLI ? Mnemonic/Ordering Site: ??DIGSC/SPMAM Ordering Physician: ??RONNIE MIKE MD Michaelle Screening Digital - 09/10/24 - [id number] Report Status:Signed EXAM: ??SCREENING MAMMOGRAPHY, BILATERAL HISTORY: ??SCREENING. ??Family history of breast cancer, sister COMPARISON: ??09/02/2023, 08/15/2022, 08/09/2021, 08/04/2020 TECHNIQUE: Synthesized CC and MLO projections of each breast. ??Tomosynthesis of each breast in the CC and MLO projections. ADDITIONAL IMAGING: None Computer-aided detection was employed with the iCAD ??profound AI 3-D. TISSUE DENSITY: There are scattered areas of fibroglandular density. (BI-RADS category B) FINDINGS: RIGHT BREAST: No suspicious mass. No suspicious calcification. No distortion. ?? No additional suspicious right breast findings LEFT BREAST: No suspicious mass. No suspicious calcification. No distortion. ?? No additional suspicious left breast findings IMPRESSION: No mammographic evidence of malignancy. No suspicious interval change. A negative mammogram in the presence of a clinically suspicious palpable abnormality does not preclude the possibility of malignancy or alter the indications for biopsy. ASSESSMENT: BI-RADS 1: NEGATIVE RECOMMENDATION(S): 1: Routine screening mammogram BILATERAL in 1 year. Dictating Physician: ??Linda SALINAS BRET MD Electronically Signed by: ??Linda SALINAS BRET MD Dic Date/Time: ??09/10/24 1207 Sign date/Time: ??09/10/24 1212 Procedure Note Choco Salinas MD - 09/11/2024 [facility] Diagnostic Imaging Department [address] [place] [address] Patient: MCKAYLA LEH /Age/Sex: 1965 - 59 - F Unit#: [id number] Location/Status: [facility]/REG CLI Mnemonic/Ordering Site: [facility] Ordering Physician: RONNIE MIKE MD Michaelle Screening Digital - 09/10/24 - [id number] Report Status:Signed EXAM: SCREENING MAMMOGRAPHY, BILATERAL HISTORY: SCREENING. Family history of breast cancer, sister COMPARISON: 09/02/2023, 08/15/2022, 08/09/2021, 08/04/2020 TECHNIQUE: Synthesized CC and MLO projections of each breast.Tomosynthesis of each breast in the CC and MLO projections. ADDITIONAL IMAGING: None Computer-aided detection was employed with the iCAD profound AI 3-D. TISSUE DENSITY: There are scattered areas of fibroglandular density.(BI-RADS category B) FINDINGS: RIGHT BREAST: No suspicious mass. No suspicious calcification. No distortion. Noadditional suspicious right breast findings LEFT BREAST: No suspicious mass. No suspicious calcification. No distortion. Noadditional suspicious left breast findings IMPRESSION: No mammographic evidence of malignancy. No suspicious interval change. A negative mammogram in the presence of a clinically suspicious palpable abnormality does not preclude the possibility of malignancy or alter the indications for biopsy. ASSESSMENT: BI-RADS 1: NEGATIVE RECOMMENDATION(S): 1: Routine screening mammogram BILATERAL in 1 year. Dictating Physician: Linda SALINAS BRET MD Electronically Signed by: Linda SALINAS BRET MD Dic Date/Time: 09/10/24 1207 Sign date/Time: 09/10/24 1212 Ronnie Mike MD IMG BI PROCEDURES from Last 3 Months Care Teams Research Biologist Relationship Specialty Start Date End Date Orly Han, SHERRY [address] [place] [address] PCP - General 02/26/22
== END 2024-12-09 09:59 | disposition home or self-care (01) ==
LOC: HO.MAMMO 09:58
PROVIDERS: PCP Nurse Practitioner Family; Visit Provider Internal Medicine Rheumatology
DX: Z13.820 Encounter for screening for osteoporosis (principal); E28.39 Other primary ovarian failure; M81.0 Age-related osteoporosis without current pathological fracture
CPT/HCPCS: 77081

== ENCOUNTER → 2024-12-09 10:00 | Outpatient (BNV) | payer OTHER, SELFPAY | PROVIDERS: PCP Nurse Practitioner Family; Visit Provider Radiology Diagnostic Radiology | DX: E28.39 Other primary ovarian failure (principal) | CPT/HCPCS: 77081 ==

== ENCOUNTER 2024-12-28 12:40 | Outpatient (AMB) | payer OTHER, SELFPAY ==
--- NOTE | 2024-12-28 12:43 | A.OFFVIS_ITS ---
Vital Signs 12/28/24 12:44 Height 5 ft 4 in Weight 139 lb 2 oz BMI 23.9 BP 100/80 Blood Pressure Location Lt brachial Position Sitting Pulse 94 Pulse Source Pulse Oximeter Pulse Oximetry (%) 98 Oxygen Delivery Method Room Air Intake Visit Reasons: Follow Up 2mo Intake Note: Patient presents for RA. 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 No recent fractures. She is having right-sided neck pain. She gets massages regularly and has been using diclofenac gel. She also has been changing her pillows. She continues to do exercises learned from physical therapy. [facility] Surgical History (Updated 12/28/24 @ 12:48 by Kitty Olmstead CMA) S/P removal of parathyroid gland Review of Systems Const All systems reviewed & are unremarkable except as noted in HPI and below Physical Exam Vital Signs: Last Vital Signs Pulse 94 12/28/24 12:44 BP 100/80 12/28/24 12:44 Pulse Ox 98 12/28/24 12:44 Oxygen Delivery Method Room Air 12/28/24 12:44 BMI result Body Mass Index 23.9 Const Other: General: Comfortable Skin: No lesions seen MSK: Good cervical range of motion. Tender to palpate right trapezius region. Good lumbar flexion. No synovitis. Good range of motion of upper extremities and lower extremities. Assessment & Plan Assessment & Plan (1) Osteoporosis: Comment: On alendronate. Hx parathyroidectomy for treatment of hyperparathyroidism 2023. She had a bone density recently which we reviewed. She has had slight worseni ng bone density in L-spine with T-score-2.7. There is improvement of bone density in the left femoral neck and total hip. Bone density T-score is-1.3 whereas previously was it was-2.5 in the left femoral neck 2022. Left total hip is T-score-2.0 where as previously T-score was-1.9. I will give her more time on alendronate. We discussed side effects of alendronate with long-term use including osteonecrosis of the jaw. Code(s): M81.0 - Age-related osteoporosis without current pathological fracture Category: Medical Qualifiers: Osteoporosis type: age-related Presence of current pathological fracture: without current pathological fracture Qualified Code(s): M81.0 - Age- related osteoporosis without current pathological fracture Plan: Continue alendronate 70 mg once weekly Labs for drug monitoring up-to-date 10/2024 She will follow up with routine oral hygiene and regular dental exams Bone density due in 2 years 12/2026 Return to clinic in 1 year sooner if needed (2) Chronic neck pain: Comment: Due to trapezius muscle strain. She has background history of cervical spondylosis. Code(s): M54.2 - Cervicalgia; G89.29 - Other chronic pain Category: Medical Plan: Continue neck strengthening exercises daily Can consider trying lidocaine patch applied to affected area as needed She will start using 10s unit at home 3 times a week Continue to use diclofenac 1% applied to affected area as needed Return to clinic in 1 year or sooner if needed Coding Level of Care Code Est Pt Level 4 (82523) Complex EM visit Add On G2211 Diagnoses Age-related osteoporosis without current pathological fracture M81.0 Osteoporosis type: age-related Presence of current pathological fracture: without current pathological fracture Chronic neck pain M54.2; G89.29
[2024-12-28 12:44] VITALS: BP 100/80; PULSE 94; O2SAT 98; BMI 23.9
--- OUTSIDE RECORDS SUMMARY | 2024-12-28 13:33 | XMS_ITS | Encounter Summary ---
Author Organization [facility] Address [address] [place] [address] Care Team Providers Care Asset Manager Name Role Phone Orly Han SHERRY Primary Care Provider [phone] Reason for Visit * Reason Onset Date Comments Refill Request 12/24/2024 Encounter Details Date Type Department Care Team (Late st Contact Info) Description 12/24/2024 Telephone Gastroenterology - [address] [place] [address] Gisselle Kim PA [address] [place] [address] Refill Request Social History Tobacco Use Types Packs/Day Years [...] your loved ones. For example, early childhood or elderly care for an older adult? [...] What is your living situation? 1 01/05/2024 Comments Unknown Sex and Gender Information Value Date Recorded Sex Assigned at Not on file Legal Sex Female 10:48 AM EST Gender Identity Not on file Sexual Orientation Not on file documented as of this encounter Ordered Prescriptions Prescription Sig Dispense Quantity Refills Last Filled Start Date End Date nortriptyline (PAMELOR) 25 mg capsuleIndications :Irritable bowel syndrome (IBS) Take 1 capsule (25 mg total) by mouth at bedtime. 30 each 12/24/2024 documented in this encounter Progress Notes * Radha Guzman [place] - 12/24/2024 4:06 PM EST Lmom to bc. I need to verify how pt takes the medication. EX: 1 Capsule BID * Neeru Bryant - 12/24/2024 3:58 PM EST Patient calling requesting refill for nortriptyline (PAMELOR) 25 mg capsule MAO 11/21/2023 NOV 01/24/2025 documented in this encounter Plan of Treatment Upcoming Encounters Date Type Department Care Team (Late st Contact Info) Description 01/24/2025 2:20 PM EDT Office Visit Gastroenterology - [address] [place] [address] Gisselle Kim PA [address] [place] [address] 04/14/2025 11:00 AM EDT Office [facility] [place] [address] [place] [address] Dariusz Mike MD [address] [place] [address] documented as of this encounter Visit Diagnoses Diagnosis Irritable bowel syndrome (IBS)- Primary documented in this encounter Discontinued Medications Medication Sig Discontinue Reason Start Date End Da te nortriptyline (PAMELOR) 25 mg capsule Reorder 09/16/2020 12/24/2024 documented as of this encounter Care Teams Asset Manager Relationship Specialty Start Date End Date Orly Han, SHERRY [address] [place] [address] PCP - General 02/26/22 documented as of this encounter
--- OUTSIDE RECORDS SUMMARY | 2024-12-28 13:33 | XMS_ITS | Continuity of Care Document ---
Author Organization [facility] Address [address] [place] [id number] Care Team Providers Care Electrical Contractor Name Role Phone Orly Han NP Primary Care Physician [place] [facility] [place]): 11/11/24 - 12/11/24 [facility] [address] [place] [id number] Attending Physician: Admtr, [id number] Admitting Physician: Admtr, Ar8 Referring Physician: Admtr, Ar8 Encounter Type: Triage Allergies, Adverse Reactions, Alerts [...] influenza virus vaccine, inactivated 10/14/16 Domenic rded [id number] 12y+ bivalent booster vax 09/05/22 Recorded SARS-CoV-2 mRNA ([id number]) vax 03/28/22 Recorded zoster vaccine, inactivated 01/18/22 [...] 9:26:00 AM EDT, Route to Pharmacy Electronically, [facility]/pharmacy #[id number], Partial fill upon patient request if the [...] Refills, Maintenance, 10/07/18 5:33:29 PM EST, Gel, [facility]/pharmacy #[id number], 1 application Topically 4 times [...] 1:18:00 PM EST, Route to Pharmacy Electronically, [facility]/pharmacy #[id number], 163, cm, 09/29/24 14:43:00 EST, [...] Personnel Name: Andrea CHAHAL, Nimesh Bruno Position: [facility] RN Member Role: Primary Care Nurse Name: Orly Han NP Position: [facility] PCO Associate Professional Member Role: PCP Address: [address] [place] [id number] Telecom: Care Team Related Persons Name: PHILLIP PEDRO Insurance Providers Guarantor name[facility] Information #: 1 Payer: [facility] Member Number: NA Policy Number: NA Group Number: NA
--- OUTSIDE RECORDS SUMMARY | 2024-12-28 13:33 | XMS_ITS | Clinical Summary ---
Author Organization [facility] Address [address] [place] [address] Phone Care Team Providers Care Video Production Engineer Name Role Phone Orly Han NP Primary Care Provider [phone] Allergies Active Allergy Reactions Criticality Noted Date Comments Amoxicillin-Pot Clavulanate 11/28/2020 Nauseas and headaches Dicyclomine 02/26/2022 Sulfa (Sulfonamide Antibiotics) Nausea And Vomiting 12/30/2018 Medications ACETAMINOPHEN ORAL Take by mouth. Activ e alendronate (FOSAMAX) 70 mg tablet PLEASE SEE ATTACHED FOR DETAILED DIRECTIONS 4 Active calcium carbonate (CALCIUM ORAL) Take by mouth. Active CRANBERRY ORAL Take by mouth. Active cholecalciferol (VITAMIN D-3) 25 mcg (1,000 unit) tablet Take by mouth. Ac tive diclofenac (Voltaren Arthritis Pain) 1 % topical gel APPLY TO AFFECTED AREA EVERY 6 HOURS 0 Active gabapentin (NEURONTIN) 400 mg capsule Take 1 capsule (400 mg total) by mouth 3 (three) times a day with meals. 0 Active IBUPROFEN ORAL Take by mouth. Active lisinopriL (PRINIVIL,ZESTR IL) 5 mg tablet Take 1 tablet (5 mg total) by mouth 1 (one) time each day. 0 Active pantoprazole (PROTONIX) 40 mg EC tablet Take 40 mg by mouth daily. 0 Active cycloSPORINE (Restasis MultiDose) 0.05 % drops INSTILL 1 DROP INTO AFFECTED EYE EVERY 12 HOURS 2 Active MAGNESIUM ORAL Take by mouth. Active Lactobacillus acidophilus (PROBIOTIC ORAL) Take by mouth. Activ e clotrimazole-be tamethasone (LOTRISONE) 1-0.05 % cream 1 GRAM TWICE A DAY TO AFFECTED AREA 4 Active cyclobenzaprine (FLEXERIL) 5 mg tablet Take 1 tablet (5 mg total) by mouth. 3 Active nitrofurantoin, macrocrystal-mo nohydrate, (MACROBID) 100 mg capsule Take 1 capsule (100 mg total) by mouth 2 (two) times a day. for 10 days 4 Active oxyCODONE (ROXICODONE) 5 mg immediate release tablet Take 1 tablet (5 mg total) by mouth every 6 (six) hours if needed. for pain Max Daily Amount: 20 mg 4 Active nortriptyline (PAMELOR) 25 mg capsuleIndicati ons:Irritable bowel syndrome (IBS) Take 1 capsule (25 mg total) by mouth at bedtime. 30 each 5 01/24/20 25 Active nortriptyline (PAMELOR) 25 mg capsule 0 12/24/19 25 Discontin ued(Reord er) Active Problems Problem Noted Date Diagnosed Date At high risk for breast cancer 09/28/2024 BRCA2 gene mutation positive in female 4 Paroxysmal tachycardia 08/18/2024 GERD (gastroesophageal reflux disease) 9 Migraines 04/19/2019 Encounters Date Type Department Care Team Description 12/24/2024 Telephone Gastroenterology - [address] [place] [phone] Gisselle Kim PA Refill Request 12/06/2024 Lab Requisition [facility] - Main Lab [address] [facility] [place] [address] Trent Restrepo MD Encounter for screening for infections with a predominantly sexual mode of transmission 11/04/2024 2:30 PM EST Office Visit Walk-In Clinic - [address] [place] [address] Haja Chance PA Acute cystitis with hematuria (Primary Dx) 09/28/2024 11:00 AM EST [facility] [place] [address] [facility] [address] [place] [address] Ronnie Mike MD BRCA2 gene mutation positive in female (Primary Dx); At high risk for breast cancer from Last 3 Months Immunizations Name Administration Dates Next Due Moderna SARS-CoV-2 COVID-19, mRNA, LNP-S, preservative free 09/05/2022 Surgical History Surgery Date Site/Laterality Comments SALPINGOOPHORECTOMY 11/2011 PROCEDURE: IA LAPAROSCOPY W/RMVL ADNEXAL STRUCTURES Medical History Medical [...] care for your loved ones. For example, summer child caregiver or elderly care for an older adult? [...] on file Sexual Orientation Not on file Obstetrics History Last Filed [...] Office Visit Gastroenterology - [address] [place] [phone] Gisselle [place] PA [address] [place] [address] 04/14/2025 11:00 AM EDT Office Visit [facility] [address] [place] [phone] Ronnie Mike MD [address] [facility] [address] [place] [address] Health Maintenance Due Date Last Done Comments Cervical Cancer Screening: Pap Smear 02/12/1984 Pneumococcal Vaccine: 50+ Years (3 of 3 - PCV20 or PCV21) 03/13/2022 03/13/2017, 08/09/2015 Cholesterol Screening (Lipid Panel) 10/14/2022 Colorectal Cancer Screening: Colonoscopy 10/14/2022 Depression Screening 10/14/2022 HIV Screening 10/14/2022 Hepatitis C Screening 10/14/2022 Osteoporosis Screening (Bone Density Screening) 10/14/2022 Hypertension/CHF/CAD Annual BMP Blood Test 09/28/2024 DTaP,Tdap,and Td Vaccines (2 - Td or Tdap) 07/14/2025 07/14/2015 Social Influencers of Health Screening 11/04/2025 11/04/2024 Breast Cancer Screening 09/10/2026 09/10/20 24, 09/02/2023, 08/15/2022, Additional history exists Pneumococcal Vaccine: [...] patient's age to complete this topic Meningococcal B Vacine Aged Out No lo nger eligible based on patient's age to complete [...] 12:12 PM EDT from Last 3 Months or Most Recently Relevant to Health Maintenance Results * Chlamydia trachomatis and Neisseria gonorrhoeae molecular study (12/06/2024 12:00 AM EST) [facility] Neisseria gonorrhoeae PCR Negative Negative LAB MOLECULAR DIAGNOSTICS METHOD 12/07/2024 8:50 AM EST [facility] Chlamydia trachomatis PCR Negative Negative LAB MOLECULAR DIAGNOSTICS METHOD 12/07/2024 8:50 AM EST [facility] Swab Cervix uteri structure / Unknown 12/06/2024 12/06/2024 6:24 PM EST Trent Restrepo MD LAB MICROBIOLOGY - GENERAL ORD ERABLES Final Result [facility] [address] [place] [address], [place] [phone] * (ABNORMAL) POC Urine Non-Auto W/O Micro (11/04/2024 6:19 PM EST) [facility] GLUCOSE POC Negative Negative, Trace mg/dL Leukocytes UA POC 2+(A) Negative mg/dL Nitrite UA POC Positive Urobilinogen UA POC 0.2 E.U./dL mg/dL Protein UA POC Positive Positive, Negative PH UA POC 7.0 ALINA/HM UA POC 50(A) Negative Specific [place] UA POC 1.010 Ketones UA POC Negative Negative Bilirubin UA POC Negative Negative Urine Urine specimen obtained by clean catch procedure / Unknown 11/04/2024 6:19 PM EST Haja [facility] POINT OF CARE TEST ENTER/E DIT ORDERABLES Final Result * (ABNORMAL) Urinalysis microscopic only (11/04/2024 3:25 PM EST) [facility] RBC, Urine 28.8(H) 0 - 4 /HPF LAB URINALYSIS - AUTOMATED METHOD 11/04/2024 7:36 PM EST [facility] WBC, Urine 64.7(H) 0 - 4 /HPF LAB URINALYSIS - AUTOMATED METHOD 11/04/2024 7:36 PM EST [facility] Squamous Epithelial, Urine 7 0 - 60 /LPF LAB URINALYSIS - AUTOMATED METHOD 11/04/2024 7:36 PM EST [facility] Bacteria, Urine Few(A) Negative /HPF LAB URINALYSIS - AUTOMATED METHOD 11/04/2024 7:36 PM EST [facility] Hyaline Casts, Urine 1.7 0 - 3 /LPF LAB URINALYSIS - AUTOMATED METHOD 11/04/2024 7:36 PM EST [facility] Urine Urine specimen obtained by clean catch procedure / Unknown Non-blood Collection / Unknown 11/04/2024 3:25 PM EST 11/04/2024 3:25 PM EST [facility] LAB URINE ORDERABLES Final Result [facility] [address] [place] [address], * (ABNORMAL) Culture urine (11/04/2024 3:25 PM EST) Culture, Urine 50,000-100,000 CFU/mL Escherichia coli(A) ARELIS 11/06/2024 9:57 AM EST [facility] Urine Urine specimen obtained by [...] Escherichia coli Trimethoprim/Sulfamethoxazole ARELIS <=20 ug/ml: Susceptible us Haja [facility] LAB MICROBIOLOGY - GENERAL ORDERABLES Final Result [facility] [address] [place] [address], * MICHAELLE SCREENING DIGITAL (09/10/2024 12:12 PM EDT) Anatomical Region Laterality Modality Mammography 09/10/2024 11:2 3 AM EDT Narrative 09/10/2024 12:12 PM EDT [facility] Diagnostic Imaging Department [address] [place] [address] Patient: ??TASHA LE ?/Age/Sex: 1965 - 59 - F Unit#: ??[id number] ? Location/Status: ??SPDIMAM/REG CLI ? Mnemonic/Ordering Site: ??DIGSC/SPMAM Ordering Physician: ??RONNIE MIKE MD Michaelle Screening Digital - 09/10/24 - 1137 Report Status:Signed EXAM: ??SCREENING MAMMOGRAPHY, BILATERAL HISTORY: [...] Procedure Note Choco Salinas MD - 09/11/2024 [facility] Diagnostic Imaging Department [address] [place] [address] Patient: TASHA LE/Age/Sex: 1965 - 59 - F Unit#: [id number] Location/Status: SPDIMAM/REG CLI Mnemonic/Ordering Site: [facility] Ordering Physician: RONNIE MIKE MD Michaelle Screening Digital - 09/10/24 - 1137 Report Status:Signed EXAM: SCREENING MAMMOGRAPHY, BILATERAL HISTORY: SCREENING. Family history of breast cancer, sister COMPARISON: 09/02/2023, 08/15/2022, 08/09/2021, 08/04/2020 TECHNIQUE: Synthesized CC and MLO projections of each breast.Tomosynthesis of each breast in the CC and MLO projections. ADDITIONAL IMAGING: None Computer-aided detection was employed with the [employer] AI 3-D. TISSUE DENSITY: There are scattered [...] 1212 Ronnie Mike MD IMG BI PROCEDURES Final Result from Last 3 Months or Most Recently Relevant to Health Maintenance Insurance [facility] [place] [address] [facility] Care Teams Video Production Engineer Relationship Specialty Start Date End Date Orly Han NP [address] [place] [address] PCP - General 02/26/22
--- OUTSIDE RECORDS SUMMARY | 2024-12-28 13:33 | XMS_ITS | Encounter Summary ---
Author Organization [facility] Address [address] [place] [address] Care Team Providers Care News Internship Name Role Phone Orly Han SHERRY Primary Care Provider [phone] Encounter Details Date Type Department Care Team (Latest Contact Info) Description 12/06/2024 Lab Requisition [facility] - Main Lab [address] [facility] [place] [phone] Trent Restrepo MD [address] [phone] Encounter for screening for infections with a [...] care for your loved ones. For example, children's librarian or elderly care for an older adult? [...] Office Visit Gastroenterology - [address] [facility] [address] [place] [phone] Gisselle [place] PA [address] [place] [address] 04/14/2025 11:00 AM EDT Office Visit [facility] [address] [place] [address] Dariusz Mike MD [address] [facility] [address] [place] [address] documented as of this encounter Procedures Procedure [...] MOLECULAR DIAGNOSTICS METHOD 12/07/2024 8:50 AM EST [facility] Chlamydia trachomatis PCR Negative Negative LAB MOLECULAR DIAGNOSTICS METHOD 12/07/2024 8:50 AM EST [facility] Swab Cervix uteri structure / Unknown 12/06/2024 12/06/2024 6:24 PM EST us Trent Restrepo MD LAB MICROBIOLOGY - GENERAL ORD ERABLES Final Result [facility] [address] [place] [address], documented in this encounter Visit Diagnoses Diagnosis Encounter for screening for infections with a predominantly sexual mode of transmission documented in this encounter Care Teams News Internship Relationship Specialty Start Date End Date Orly Han NP [address] [place] [address] PCP - General 02/26/22 documented as of this encounter
== END 2024-12-28 13:19 | disposition home or self-care (01) ==
PROVIDERS: PCP Nurse Practitioner Family; Visit Provider Internal Medicine Rheumatology
DX: M81.0 Age-related osteoporosis without current pathological fracture (principal); M54.2 Cervicalgia; G89.29 Other chronic pain
CPT/HCPCS: 99214